=== PATIENT | male | born 2000 | race Hispanic/Latino ===

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

== ENCOUNTER 2022-06-10 21:45 | Emergency (ER) | payer OTHER, SELFPAY | END 2022-06-10 23:00 | disposition home or self-care (01) | LOC: MADERS 21:45 | DX: S86.912A Strain of unspecified muscle(s) and tendon(s) at lower leg level, left leg, initial encounter (principal); S83.92XA Sprain of unspecified site of left knee, initial encounter; J45.909 Unspecified asthma, uncomplicated; X50.9XXA Other and unspecified overexertion or strenuous movements or postures, initial encounter; Z77.22 Contact with and (suspected) exposure to environmental tobacco smoke (acute) (chronic); Z79.899 Other long term (current) drug therapy | CPT/HCPCS: 99283 ==

== ENCOUNTER 2023-01-03 15:31 | Emergency (ER) | payer MEDICAID, OTHER ==
[2023-01-03] MEDS ORDERED: predniSONE 20 MG TAB ONE (16:09)
== END 2023-01-03 16:15 | disposition home or self-care (01) ==
LOC: MADERS 15:31
DX: S33.9XXA Sprain of unspecified parts of lumbar spine and pelvis, initial encounter (principal); S39.012A Strain of muscle, fascia and tendon of lower back, initial encounter; M54.41 Lumbago with sciatica, right side; F17.290 Nicotine dependence, other tobacco product, uncomplicated; X50.3XXA Overexertion from repetitive movements, initial encounter
CPT/HCPCS: 99283; J7512

== ENCOUNTER 2023-01-29 08:35 | Emergency (ER) | payer OTHER | END 2023-01-29 10:08 | disposition home or self-care (01) | LOC: MADERS 08:35 | DX: S63.502A Unspecified sprain of left wrist, initial encounter (principal); F17.290 Nicotine dependence, other tobacco product, uncomplicated; X50.0XXA Overexertion from strenuous movement or load, initial encounter ==